=== PATIENT | male | born 1965 | race Caucasian/White ===

== ENCOUNTER 2020-12-28 12:12 | Inpatient (IN) | payer OTHER ==
[~2020-12-28] VITALS: Ht 160 cm; Wt 81.1 kg
--- NOTE | 2020-12-28 12:28 | NUR ---
PATIENT O2 SATURATION 86%-88% ON RA. PLACED ON 3 LPM NC, O2 SATURATION UP TO 91%.
[2020-12-28] MEDS ORDERED: DEXAMETHASONE 4 MG/ML, 1ML PO ONE (12:30)
[2020-12-28] MEDS ORDERED: DOXYCYCLINE 100MG TABLET PO ONE (13:30)
[2020-12-28] MEDS ORDERED: CEFTRIAXONE 1,000 MG in DEXTROSE 5% 50 ML IVPB ONE (13:30)
[2020-12-28 14:11] LABS: BASOPHILS % (AUTO) 1 % (0-1); EOSINOPHILS % (AUTO) 0 % (1-7); LYMPHOCYTES % (AUTO) 20 % (22-44); MEAN CORPUSCULAR HEMOGLOBIN 30.5 pg (27.5-34.5); MEAN CORPUSCULAR HGB CONC 34.3 g/dL (33.2-36.2); MEAN PLATELET VOLUME 7.6 fL (7.4-10.4); MONOCYTES % (AUTO) 8 % (2-9); NEUTROPHILS % (AUTO) 72 % (42-75); PLATELET COUNT 113 x10^3/uL (130-400); RED BLOOD COUNT 5.32 x10^6/uL (4.38-5.82); RED CELL DISTRIBUTION WIDTH 13.5 % (9.4-14.8)
[2020-12-28 14:17] LABS: ALANINE AMINOTRANSFERASE 130 U/L (12-78); ANION GAP 4 mmol/L (5-15); CALCIUM 8.2 mg/dL (8.5-10.1); CHLORIDE 100 mmol/L (98-107); CREATININE 1.15 mg/dL (0.7-1.3)
[2020-12-28 14:22] LABS: D-DIMER (DIC) 0.89 ug/mlFEU (0.00-0.52); PROTIME 10.3 Seconds (9.6-11.5)
[2020-12-28 14:23] LABS: ALKALINE PHOSPHATASE 71 U/L (45-117); BILIRUBIN,TOTAL 1.1 mg/dL (0.2-1.0); TOTAL PROTEIN 7.2 g/dL (6.4-8.2)
--- NOTE | 2020-12-28 14:38 | NUR ---
can line examiner: Pt to room via WC from lobby at this time.
[2020-12-28] MEDS ORDERED: AZITHROMYCIN 500 MG in SODIUM CHLORIDE 0.9% 250 ML IV ONE (15:00)
[2020-12-28] MEDS ORDERED: SODIUM CHLORIDE 0.9% 1,000ML IVBOLUS ONE (15:00)
[2020-12-28] MEDS ORDERED: DEXAMETHASONE 4 MG/ML, 1ML IVPush ONE (15:00)
--- NOTE | 2020-12-28 15:17 | NUR ---
PIV PLACED-PATIENT THEN TO CT SCAN ROOM AIR POX 85-86% -THEN PLACED BACK ON 2L NC
--- NOTE | 2020-12-28 15:20 | NUR ---
TASK RN NOTE: LUNCH RELIEF FOR JOEL BURCH. PT IN CT SCAN.
[2020-12-28] MEDS ORDERED: OMNIPAQUE 350 MG/ML, 75ML BOTTLE ONE (15:44)
[2020-12-28] MEDS ORDERED: DEXAMETHASONE 4 MG/ML, 1ML ONE (15:58)
[2020-12-28] MEDS ORDERED: DOXYCYCLINE 100MG TABLET ONE (15:58)
[2020-12-28] MEDS: CEFTRIAXONE 1,000 MG in DEXTROSE 5% 50 ML IVPB SCH (16:58)
[2020-12-28] MEDS ORDERED: MELATONIN 5 MG TABLET PO PRN (17:00)
[2020-12-28] MEDS ORDERED: ACETAMINOPHEN 325 MG TABLET PO PRN (17:00)
[2020-12-28] MEDS ORDERED: DOCUSATE 100 MG CAPSULE PO PRN (17:00)
[2020-12-28] MEDS ORDERED: morphine SULFATE 10 MG/ML, 1ML IVPush PRN (17:00)
[2020-12-28] MEDS ORDERED: BISACODYL 10 MG SUPP PR PRN (17:00)
[2020-12-28] MEDS ORDERED: PHARMACY MAY ADJ FOR RENAL FX MC PRN (17:00)
[2020-12-28] MEDS ORDERED: POLYETHYLENE GLYCOL 17 GM PACKET PO PRN (17:00)
[2020-12-28] MEDS ORDERED: ENALAPRILAT 1.25 MG/ML, 2ML IVPush PRN (17:00)
[2020-12-28] MEDS ORDERED: PROCHLORPERAZINE 5 MG/ML, 2ML IVPush PRN (17:00)
[2020-12-28] MEDS ORDERED: HYDROcodone/APAP 5/325 TABLET PO PRN (17:00)
[2020-12-28] MEDS ORDERED: hydrALAzine 20 MG/ML, 1ML IVPush PRN (17:00)
[2020-12-28] MEDS ORDERED: LABETALOL 5MG/ML, 20ML IVPush PRN (17:00)
[2020-12-28] MEDS ORDERED: PROCHLORPERAZINE 5 MG/ML, 2ML ONE (17:02)
--- NOTE | 2020-12-28 17:17 | NUR ---
TASK RN NOTE: FIRST ATTEMPT TO CALL REPORT.
--- NOTE | 2020-12-28 17:22 | NUR ---
REPORT CALLED TO MEDICAL. "THE ROOM IS NOT READY YET" PER MED RN.
[2020-12-28] MEDS ORDERED: FUROSEMIDE 40 MG/4 ML ONE (17:24)
[2020-12-28] MEDS ORDERED: REMDESIVIR 200 MG in SODIUM CHLORIDE 0.9% 250 ML IVPB ONE (17:30)
[2020-12-28] MEDS ORDERED: FUROSEMIDE 10 MG/ML ORAL SOL PO ONE (17:30)
[2020-12-28 20:07] VITALS: BP 158/98
[2020-12-28] MEDS: ASCORBIC ACID 500 MG TABLET PO SCH (20:18)
[2020-12-28] MEDS: FAMOTIDINE 20 MG TABLET PO SCH (20:18)
[2020-12-28] MEDS: ENOXAPARIN 40 MG/0.4 ML SQ SCH (20:19)
[2020-12-28] MEDS ORDERED: FUROSEMIDE 40 MG TABLET PO ONE (20:30)
[2020-12-28] MEDS ORDERED: DOXYCYCLINE 100MG TABLET PO SCH (21:00)
[2020-12-28] MEDS: TRAZODONE 50MG TABLET PO PRN (21:52)
[2020-12-28] MEDS: GUAIFENESIN/DM 200-20MG, 10ML UDC PO PRN (23:45)
[2020-12-29] VITALS: BP 151/93
[2020-12-29 05:52] LABS: BASOPHILS % (AUTO) 0 % (0-1); EOSINOPHILS % (AUTO) 0 % (1-7); LYMPHOCYTES % (AUTO) 18 % (22-44); MEAN CORPUSCULAR HEMOGLOBIN 30.4 pg (27.5-34.5); MEAN CORPUSCULAR HGB CONC 34.5 g/dL (33.2-36.2); MEAN PLATELET VOLUME 7.3 fL (7.4-10.4); MONOCYTES % (AUTO) 11 % (2-9); NEUTROPHILS % (AUTO) 71 % (42-75); PLATELET COUNT 119 x10^3/uL (130-400); RED CELL DISTRIBUTION WIDTH 13.5 % (9.4-14.8)
[2020-12-29] MEDS: GUAIFENESIN/DM 200-20MG, 10ML UDC PO PRN ×4 (05:56→21:53)
[2020-12-29] MEDS: DOXYCYCLINE 100MG TABLET PO SCH ×2 (05:56→21:54)
[2020-12-29 06:15] LABS: ALBUMIN 2.7 g/dL (3.4-5.0); ANION GAP 7 mmol/L (5-15); CALCIUM 8.2 mg/dL (8.5-10.1); CHLORIDE 101 mmol/L (98-107)
[2020-12-29 06:19] LABS: ALANINE AMINOTRANSFERASE 166 U/L (12-78); ALKALINE PHOSPHATASE 65 U/L (45-117); BILIRUBIN,TOTAL 0.9 mg/dL (0.2-1.0); CREATININE 0.98 mg/dL (0.7-1.3); TOTAL PROTEIN 6.5 g/dL (6.4-8.2)
[2020-12-29 07:40] VITALS: BP 129/85
[2020-12-29] MEDS: FAMOTIDINE 20 MG TABLET PO SCH ×2 (09:21→21:53)
[2020-12-29] MEDS: ASCORBIC ACID 500 MG TABLET PO SCH ×2 (09:21→21:54)
[2020-12-29] MEDS: ZINC SULFATE 220 MG CAPSULE PO SCH (09:21)
[2020-12-29] MEDS: ENOXAPARIN 40 MG/0.4 ML SQ SCH ×2 (09:22→21:53)
[2020-12-29] MEDS: FUROSEMIDE 20 MG/2 ML IV SCH (09:23)
[2020-12-29] MEDS: DEXAMETHASONE 4 MG/ML, 1ML IVPush SCH (09:23)
[2020-12-29] MEDS: GUAIFENESIN 200 MG TABLET PO SCH ×3 (11:51→21:53)
[2020-12-29 12:35] VITALS: BP 135/82
[2020-12-29] MEDS: CEFTRIAXONE 1,000 MG in DEXTROSE 5% 50 ML IVPB SCH (16:42)
[2020-12-29] MEDS: REMDESIVIR 100 MG in SODIUM CHLORIDE 0.9% 250 ML IVPB SCH (18:45)
[2020-12-29 20:00] VITALS: BP 109/73
[2020-12-29] MEDS: TRAZODONE 50MG TABLET PO PRN (21:53)
[2020-12-30 00:20] VITALS: BP 102/68
[2020-12-30 05:51] LABS: BASOPHILS % (AUTO) 0 % (0-1); EOSINOPHILS % (AUTO) 0 % (1-7); LYMPHOCYTES % (AUTO) 23 % (22-44); MEAN CORPUSCULAR HEMOGLOBIN 30.6 pg (27.5-34.5); MEAN CORPUSCULAR HGB CONC 34.7 g/dL (33.2-36.2); MEAN PLATELET VOLUME 7.5 fL (7.4-10.4); MONOCYTES % (AUTO) 16 % (2-9); NEUTROPHILS % (AUTO) 60 % (42-75); PLATELET COUNT 159 x10^3/uL (130-400); RED BLOOD COUNT 5.25 x10^6/uL (4.38-5.82); RED CELL DISTRIBUTION WIDTH 13.6 % (9.4-14.8)
[2020-12-30 06:03] LABS: CHLORIDE 101 mmol/L (98-107)
[2020-12-30 06:11] LABS: ALANINE AMINOTRANSFERASE 219 U/L (12-78); ALBUMIN 2.7 g/dL (3.4-5.0); ALKALINE PHOSPHATASE 74 U/L (45-117); ANION GAP 6 mmol/L (5-15); BILIRUBIN,TOTAL 0.9 mg/dL (0.2-1.0); CALCIUM 8.6 mg/dL (8.5-10.1); CREATININE 1.15 mg/dL (0.7-1.3); TOTAL PROTEIN 6.9 g/dL (6.4-8.2)
[2020-12-30] MEDS: GUAIFENESIN/DM 200-20MG, 10ML UDC PO PRN ×3 (06:24→23:15)
[2020-12-30] MEDS: GUAIFENESIN 200 MG TABLET PO SCH ×4 (06:24→20:37)
[2020-12-30] MEDS: ENOXAPARIN 40 MG/0.4 ML SQ SCH ×2 (08:50→20:38)
[2020-12-30] MEDS: ZINC SULFATE 220 MG CAPSULE PO SCH (08:50)
[2020-12-30] MEDS: DOXYCYCLINE 100MG TABLET PO SCH ×2 (08:50→20:37)
[2020-12-30] MEDS: DEXAMETHASONE 4 MG/ML, 1ML IVPush SCH (08:51)
[2020-12-30] MEDS: ASCORBIC ACID 500 MG TABLET PO SCH ×2 (08:51→20:37)
[2020-12-30] MEDS: FUROSEMIDE 20 MG/2 ML IV SCH (08:51)
[2020-12-30] MEDS: FAMOTIDINE 20 MG TABLET PO SCH ×2 (08:51→20:37)
[2020-12-30 08:58] VITALS: BP 110/68
[2020-12-30] MEDS: ALBUTEROL HFA 90 MCG/SPRAY INH SCH ×3 (10:55→23:16)
[2020-12-30] MEDS: ACETAMINOPHEN 325 MG TABLET PO PRN ×2 (11:04→21:27)
[2020-12-30 14:45] VITALS: BP 117/79
[2020-12-30] MEDS: CEFTRIAXONE 1,000 MG in DEXTROSE 5% 50 ML IVPB SCH (16:33)
[2020-12-30] MEDS: REMDESIVIR 100 MG in SODIUM CHLORIDE 0.9% 250 ML IVPB SCH (18:25)
[2020-12-30 19:20] VITALS: BP 146/91
[2020-12-31 01:14] VITALS: BP 130/80
[2020-12-31] MEDS: ALBUTEROL HFA 90 MCG/SPRAY INH SCH ×4 (05:17→22:30)
[2020-12-31] MEDS: GUAIFENESIN 200 MG TABLET PO SCH ×4 (05:18→20:41)
[2020-12-31 06:15] LABS: BASOPHILS % (AUTO) 0 % (0-1); EOSINOPHILS % (AUTO) 0 % (1-7); LYMPHOCYTES % (AUTO) 14 % (22-44); MEAN CORPUSCULAR HEMOGLOBIN 30.4 pg (27.5-34.5); MEAN CORPUSCULAR HGB CONC 34.5 g/dL (33.2-36.2); MONOCYTES % (AUTO) 15 % (2-9); NEUTROPHILS % (AUTO) 71 % (42-75); PLATELET COUNT 194 x10^3/uL (130-400); RED BLOOD COUNT 5.09 x10^6/uL (4.38-5.82); RED CELL DISTRIBUTION WIDTH 13.2 % (9.4-14.8)
[2020-12-31 06:27] LABS: CHLORIDE 104 mmol/L (98-107)
[2020-12-31 06:40] LABS: ALANINE AMINOTRANSFERASE 276 U/L (12-78); ALBUMIN 2.7 g/dL (3.4-5.0); ALKALINE PHOSPHATASE 86 U/L (45-117); ANION GAP 7 mmol/L (5-15); BILIRUBIN,TOTAL 0.9 mg/dL (0.2-1.0); CALCIUM 8.3 mg/dL (8.5-10.1); CREATININE 0.89 mg/dL (0.7-1.3); TOTAL PROTEIN 6.5 g/dL (6.4-8.2)
[2020-12-31 06:48] VITALS: BP 127/86
[2020-12-31] MEDS: FAMOTIDINE 20 MG TABLET PO SCH ×2 (08:45→20:41)
[2020-12-31] MEDS: FUROSEMIDE 20 MG/2 ML IV SCH (08:45)
[2020-12-31] MEDS: DOXYCYCLINE 100MG TABLET PO SCH ×2 (08:45→20:41)
[2020-12-31] MEDS: ZINC SULFATE 220 MG CAPSULE PO SCH (08:45)
[2020-12-31] MEDS: DEXAMETHASONE 4 MG/ML, 1ML IVPush SCH (08:45)
[2020-12-31] MEDS: ENOXAPARIN 40 MG/0.4 ML SQ SCH ×2 (08:46→20:42)
[2020-12-31] MEDS: ASCORBIC ACID 500 MG TABLET PO SCH ×2 (08:46→20:41)
[2020-12-31] MEDS: GUAIFENESIN/DM 200-20MG, 10ML UDC PO PRN ×2 (08:46→18:19)
[2020-12-31] MEDS: METHOCARBAMOL 500 MG TABLET PO PRN ×2 (11:07→20:41)
[2020-12-31] MEDS: ACETAMINOPHEN 325 MG TABLET PO PRN ×3 (11:07→20:41)
[2020-12-31 13:22] VITALS: BP 116/74
[2020-12-31] MEDS: CEFTRIAXONE 1,000 MG in DEXTROSE 5% 50 ML IVPB SCH (16:22)
[2020-12-31] MEDS: REMDESIVIR 100 MG in SODIUM CHLORIDE 0.9% 250 ML IVPB SCH (18:17)
[2020-12-31 20:36] VITALS: BP 144/86
[2021-01-01 00:43] VITALS: BP 117/73
[2021-01-01] MEDS: GUAIFENESIN 200 MG TABLET PO SCH ×2 (05:58→10:34)
[2021-01-01] MEDS: ALBUTEROL HFA 90 MCG/SPRAY INH SCH ×2 (05:59→10:32)
[2021-01-01 06:30] VITALS: BP 114/77
[2021-01-01 07:01] LABS: BASOPHILS % (AUTO) 0 % (0-1); EOSINOPHILS % (AUTO) 0 % (1-7); LYMPHOCYTES % (AUTO) 13 % (22-44); MEAN CORPUSCULAR HEMOGLOBIN 30.4 pg (27.5-34.5); MEAN CORPUSCULAR HGB CONC 34.6 g/dL (33.2-36.2); MEAN PLATELET VOLUME 7.5 fL (7.4-10.4); MONOCYTES % (AUTO) 15 % (2-9); NEUTROPHILS % (AUTO) 73 % (42-75); PLATELET COUNT 227 x10^3/uL (130-400); RED BLOOD COUNT 5.33 x10^6/uL (4.38-5.82); RED CELL DISTRIBUTION WIDTH 13.3 % (9.4-14.8)
[2021-01-01 07:13] LABS: ALBUMIN 2.6 g/dL (3.4-5.0); ANION GAP 7 mmol/L (5-15); CALCIUM 8.6 mg/dL (8.5-10.1); CHLORIDE 105 mmol/L (98-107)
[2021-01-01 07:16] LABS: ALANINE AMINOTRANSFERASE 274 U/L (12-78); ALKALINE PHOSPHATASE 94 U/L (45-117); CREATININE 0.94 mg/dL (0.7-1.3); TOTAL PROTEIN 6.8 g/dL (6.4-8.2)
[2021-01-01] MEDS: FUROSEMIDE 20 MG/2 ML IV SCH (08:50)
[2021-01-01] MEDS ORDERED: GUAI200T37 PO (08:57)
[2021-01-01] MEDS ORDERED: DEXA6TAB6 PO (08:57)
[2021-01-01] MEDS ORDERED: ZINC220C8 PO (08:57)
[2021-01-01] MEDS ORDERED: METH-639 PO (08:57)
[2021-01-01] MEDS ORDERED: ASCO500T9 PO (08:57)
[2021-01-01] MEDS ORDERED: ALBU18HF INH (08:57)
[2021-01-01] MEDS ORDERED: FURO40TA6 PO (09:05)
[2021-01-01] MEDS: DEXAMETHASONE 4 MG/ML, 1ML IVPush SCH (10:32)
[2021-01-01] MEDS: ENOXAPARIN 40 MG/0.4 ML SQ SCH (10:33)
[2021-01-01] MEDS: ASCORBIC ACID 500 MG TABLET PO SCH (10:34)
[2021-01-01] MEDS: ZINC SULFATE 220 MG CAPSULE PO SCH (10:34)
[2021-01-01] MEDS: FAMOTIDINE 20 MG TABLET PO SCH (10:34)
[2021-01-01] MEDS: DOXYCYCLINE 100MG TABLET PO SCH (10:34)
[2021-01-01] MEDS: GUAIFENESIN/DM 200-20MG, 10ML UDC PO PRN (10:46)
[2021-01-01] MEDS: ACETAMINOPHEN 325 MG TABLET PO PRN (10:46)
[2021-01-01] MEDS: METHOCARBAMOL 500 MG TABLET PO PRN (12:13)
[2021-01-01] MEDS: CEFTRIAXONE 1,000 MG in DEXTROSE 5% 50 ML IVPB SCH (12:14)
[2021-01-01 12:40] VITALS: BP 117/79
[2021-01-01] MEDS: REMDESIVIR 100 MG in SODIUM CHLORIDE 0.9% 250 ML IVPB SCH (13:55)
== END 2021-01-01 16:34 | disposition home or self-care (01) | DRG 177 ==
LOC: ED 17:45 → EDIP 18:16 → 3N 18:31
PROVIDERS: ADMIT Family Medicine; ATTEND Family Medicine
PROC: XW033E5 Introduction of Remdesivir Anti-infective into Peripheral Vein, Percutaneous Approach, New Technology Group 5 (ICD-10-PCS; principal; 2020-12-28)
DX: U07.1 COVID-19 (principal); J96.01 Acute respiratory failure with hypoxia; J12.82 Pneumonia due to coronavirus disease 2019; E87.1 Hypo-osmolality and hyponatremia; D69.6 Thrombocytopenia, unspecified; E83.51 Hypocalcemia; R74.01 Elevation of levels of liver transaminase levels; E83.52 Hypercalcemia
CPT/HCPCS: 36415; 71045; 71275; 76700; 80053; 82330; 82728; 83605; 83615; 83690; 83735; 84145; 85025; 85049; 85379; 85384; 85610; 85730; 86140; 87040; 93005; 96365; 96375; G0378; J0456; J0696; J1100; J1650; Q9967; U0005; J0780; J1940; J7030; J7050; U0003